=== PATIENT | male | born 1985 | race Caucasian/White ===

== ENCOUNTER → 2020-12-07 09:46 | Outpatient (CLI) | payer OTHER, SELFPAY ==
--- NOTE | ~2020-12-07 | XR_ITS ---
EXAMINATION:XR cervical spine 4-5V DATE: 12/07/2020 10:38 INDICATION: Cervicalgia TECHNIQUE: AP, lateral, lateral swimmers and odontoid views of the cervical spine are provided. COMPARISON: None FINDINGS: Alignment is normal. The odontoid is intact. No fracture is identified. Vertebral body heig hts and disk spaces are normal. Prevertebral soft tissues are normal. Small degenerative osteophytes project from the anterior endplates of multiple vertebral bodies. There is mild multilevel facet and uncovertebral joint osteoarthritis. IMPRESSION: 1. Mild cervical spondylosis without acute findings. Reviewed, dictated and finalized at location A.
== END ==
PROVIDERS: PCP Internal Medicine; Visit Provider Physician Assistant
DX: M47.812 Spondylosis without myelopathy or radiculopathy, cervical region (principal); M54.2 Cervicalgia
CPT/HCPCS: 72050

== ENCOUNTER 2020-12-30 13:30 | Emergency (ER) | payer OTHER, SELFPAY ==
--- NOTE | 2020-12-30 13:39 | ED.ALLEREA ---
HPI - Allergic Reaction General Chief complaint: Allergic Reaction Stated complaint: allergic reaction - pecans Time Seen by Provider: 12/30/20 13:38 Source: patient Mode of arrival: ambulatory Limitations: no limitations History of Present Illness MD complaint: allergic reaction and facial swelling (Mid lip swelling, tingling in mouth, improved since getting medications at [facility]) Onset (ago): hour(s) (1.5) Exposure: food (patient has a known allergy to peanut oil; ate pecans [employer]IN[employer]; also taking lisinopril-HCTZ with no previous reaction to [place]) Symptoms: lip swelling (mid lip) and other (mouth tingling after eating pecans) Severity: moderate Treatment prior to arrival: benadryl, bronchodilator, steroids and other (sent from [facility] for re-evaluation and possible epinephrine) Previous Allergic Reaction History: none (peanut oil) Related Data Home Medications Medication Instructions Recorded Confirmed albuterol sulfate 90 mcg/actuation 2 puff INHALATION Q4-6H PRN gm 02/01/19 12/08/20 aerosol inhaler Allergies Allergy/AdvReac Type Severity Reaction Status Date / Time peanut Allergy Severe Anaphylaxis Verified 12/30/20 13:59 Review of Systems Constitutional: Comments: afebrile, able to answer all questions, NAD Eyes: Comments: no vision changes, no vision loss, ENT: Comments: no difficulty swallowing, does complain of lip swelling, Cardiovascular: Comments: no chest pain, does complain of palpitations, no lower extremity edema Respiratory: Comments: no shortness of breath, no wheezing, no cough Gastrointestinal: Comments: no nausea no vomiting, no abdominal pain Musculoskeletal: Comments: no muscle cramps, no joint swelling Integumentary/Breasts: Comments: no rash, no itching, no wounds Neurologic: Comments: no vertigo, no focal weakness, no headache PMFSH Family History Family History Mother Patient's mother is in good health Social History Social History Smoking status: Never smoker Second hand tobacco smoke exposure: No Alcohol intake: never Exam Const: General: no acute distress and alert Nutritional Appearance: well nourished Course Course Emergency Course: Patient give 0.3mg epinephrine and 1L of fluid on arrival; lip swelling improved; no other symptoms currently; advised patient he could be allergic to pecans or lisinopril and he should talk to his PMD before taking lisinopril again. Patient understands, 100% on RA, ambulating with steady gait. Reevaluation(s) Reevaluation #1: Lip swelling improved, rest of exam normal. Patient feeling better. 100% on RA, no difficulty swallowing; ok for discharge. 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 Lungs CTA B; no urticaria, patient does have upper lip swelling, uvula midline, no soft palate or tongue swelling on exam. Differential Diagnosis Differential diagnosis: Likely anaphylaxis, allergic reaction and angioedema Medical Records Attestation: I reviewed the patient's medical records. Discharge Plan Discharge Clinical Impression: Angioedema, Allergic reaction Patient Disposition: Home, Self-Care Condition: Improved Ins
[2020-12-30 13:40] VITALS: BP 164/109; PULSE 100; RESP 16; TEMP 36.1; O2SAT 93
[2020-12-30] MEDS: EPINEPHrine HCL INJ 1 MG/ML AMPUL 0.3 MG IM (13:46)
[2020-12-30] MEDS: SODIUM CHLORIDE 0.9% IV 1,000 ML 999 ML IV CONT (13:49)
[2020-12-30 14:00] VITALS: BP 163/90; PULSE 98; RESP 16; O2SAT 97
[2020-12-30 15:05] VITALS: BP 144/79; PULSE 106; RESP 16; O2SAT 95
== END 2020-12-30 15:05 | disposition home or self-care (01) ==
PROVIDERS: Emergency Provider Emergency Medicine; PCP Internal Medicine
DX: T78.3XXA Angioneurotic edema, initial encounter (principal); Z91.010 Allergy to peanuts
CPT/HCPCS: 96360; 96372; 99283; J0171; J7030

== ENCOUNTER 2021-01-29 09:09 | Outpatient (CLI) | payer OTHER, SELFPAY ==
--- NOTE | 2021-01-29 11:30 | NEURO_ITS ---
Impression: # Complains of numbness of hands. # Bilateral Carpal Tunnel Syndrome, right more than left. # No ulnar neuropathy. # Normal needle/EMG exam. Nerve Conduction Studies Anti Sensory Summary Table Stim Site NR Peak (ms) P-T Amp (?V) Site1 Site2 Delta-P (ms) Dist (cm) Pawan (m/s) Left Median Anti Sensory (2-3nd Digit) Wrist 4.6 24.6 Wrist 2-3nd Digit 4.6 14.0 30 Wrist 4.1 35.1 Wrist 2-3nd Digit 4.6 14.0 30 Right Median Anti Sensory (2-3nd Digit) Wrist 7.5 9.3 Wrist 2-3nd Digit 7.5 14.0 19 Wrist 5.8 24.8 Wrist 2-3nd Digit 7.5 14.0 19 Left Radial Anti Sensory (Base 1st Digit) Wrist 1.8 20.9 Wrist Base 1st Digit 1.8 0.0 Right Radial Anti Sensory (Base 1st Digit) Wrist 1.8 6.5 Wrist Base 1st Digit 1.8 0.0 Left Ulnar Anti Sensory (5th Digit) Wrist 2.1 78.0 Wrist 5th Digit 2.1 14.0 67 Right Ulnar Anti Sensory (5th Digit) Wrist 2.2 15.6 Wrist 5th Digit 2.2 14.0 64 Motor Summary Table Stim Site NR Onset (ms) O-P Amp (mV) Site1 Site2 Delta-0 (ms) Dist (cm) Pawan (m/s) Left Median Motor (Abd Poll Brev) Wrist 4.6 3.4 Elbow Wrist 4.8 29.0 60 Elbow 9.4 2.9 Right Median Motor (Abd Poll Brev) Wrist 5.2 0.7 Elbow Wrist 4.6 25.0 54 Elbow 9.8 0.7 Left Ulnar Motor (Abd Dig Minimi) Wrist 2.5 7.1 A Elbow Wrist 4.3 29.0 67 A Elbow 6.8 6.2 Right Ulnar Motor (Abd Dig Minimi) Wrist 2.2 6.8 A Elbow Wrist 4.7 29.0 62 A Elbow 6.9 5.1 F Wave Studies NR F-Lat (ms) L-R F-Lat (ms) Left Median (Mrkrs) (Abd Poll Brev) 26.03 0.41 Right Median (Mrkrs) (Abd Poll Brev) 25.62 0.41 Left Ulnar (Mrkrs) (Abd Dig Min) 25.65 1.43 Right Ulnar (Mrkrs) (Abd Dig Min) 24.22 1.43 EMG Side Muscle Nerve Root Ins Act Fibs Amp Dur Recrt Comment Right 1stDorInt Ulnar C8-T1 Nml Nml Nml Nml Nml Right Ext Indicis Radial (Post Int) C7-8 Nml Nml Nml Nml Nml Right Ext Digitorum Radial (Post Int) C7-8 Nml Nml Nml Nml Nml Right BrachioRad Radial C5-6 Nml Nml Nml Nml Nml Right PronatorTeres Median C6-7 Nml Nml Nml Nml Nml Right Abd Poll Brev Median C8-T1 Nml Nml Nml Nml Nml Left 1stDorInt Ulnar C8-T1 Nml Nml Nml Nml Nml Left Ext Indicis Radial (Post Int) C7-8 Nml Nml Nml Nml Nml Left Ext Digitorum Radial (Post Int) C7-8 Nml Nml Nml Nml Nml Left BrachioRad Radial C5-6 Nml Nml Nml Nml Nml Left PronatorTeres Median C6-7 Nml Nml Nml Nml Nml Left Abd Poll Brev Median C8-T1 Nml Nml Nml Nml Nml MTDD
== END 2021-01-29 09:10 | disposition home or self-care (01) ==
LOC: ANHNEURO 09:09
PROVIDERS: PCP Internal Medicine; Visit Provider Physician Assistant
DX: R20.2 Paresthesia of skin (principal); G56.03 Carpal tunnel syndrome, bilateral upper limbs
CPT/HCPCS: 95886; 95911

== ENCOUNTER 2025-02-25 09:22 | Emergency (ER) | payer OTHER, SELFPAY ==
--- NOTE | 2025-02-25 09:23 | ED_ITS ---
HPI - Skin/Abscess/Foreign Bdy General Chief complaint: Skin/Abscess/Foreign Body Stated complaint: Skin Irritation/R Leg Swelling Time Seen by Provider: 02/25/25 09:23 Source: patient Mode of arrival: ambulatory Limitations: no limitations History of Present Illness HPI narrative: patient is a 39-year-old male presents with severe eczema flare with right leg swelling. Patient states symptoms initially started in December and called his scalp specialist. They were able to get him in until March 07. Reports since then his eczema has worsened substantially. Patient has not been seen for symptoms. Concerned that he scratched open his eczema and it is now infected. Denies any fever, chills, nausea, vomiting, diarrhea. Related Data Home Medications ?Medication ?Instructions ?Recorded ?Confirmed ?Last Taken ?Type albuterol sulfate 90 mcg/actuation 2 puff inhalation Q 4-6H 02/01/19 02/25/25 Unknown History aerosol inhaler (Ventolin HFA) multivitamin 1 tablet PO DAILY 07/28/22 1 04/28/24 Unknown History Allergies Allergy/AdvReac Type Severity Reaction Status Date / Time peanut Allergy Severe Anaphylaxis Verified 02/25/25 09:32 Review of Systems 2 Review of Systems: All systems reviewed & are unremarkable except as noted in HPI and below Constitutional: Constitutional: Denies body ache(s), Denies chills, Denies fatigue, Denies fever(s), Denies headache(s), Denies malaise and Denies weakness Eyes: Eyes: Denies blurry vision, Denies irritation and Denies loss of vision ENT: Denies otalgia, Denies headache(s), Denies nasal discharge, Denies sinus pain and Denies sore throat Cardiovascular: Cardiovascular: Denies chest pain, Denies irregular heart rhythm and Denies dyspnea Respiratory: Respiratory: Denies dyspnea Gastrointestinal: Gastrointestinal: Denies abdominal pain, Denies melena, Denies hematochezia, Denies diarrhea, Denies nausea and Denies vomiting Musculoskeletal: Musculoskeletal: Denies back pain, Denies myalgias and Denies arthralgias Integumentary/Breasts: Skin/Breast: Reports pruritus and Reports rash Neurologic: Denies headache(s), Denies loss of vision and Denies weakness Psychiatric: Psychiatric: Reports no additional psychiatric complaints Endocrine: Endocrine: Denies fatigue [facility] Family History Family History Mother Patient's mother is in good health Social History Social History Smoking status: Never smoker Second hand tobacco smoke exposure: No Alcohol intake: never Lack of Transportation: No Lack of Food: Never True Current Housing: I Have Housing Concerned About Future Housing: No Difficulty Paying Gas/Electric Bills: No Difficulty Paying for Meds: No Currently Unemployed: No Education: Bachelor's Degree Difficulty w/ Childcare or Family Care: No Comments At time of signature, agree with nursing past medical, surgical, social and family history. There is no relevant family history pertinent to the presenting complaint. Exam 2 Const: General: cooperative, healthy appearing, comfortable, no acute distress and well nourished Nutritional Appearance: well nourished O rientation/consciousness: patient oriented x3 Limitations: no limitations HENMT: Head: normal to inspection, normocephalic and atraumatic Ears: h earing grossly normal bilaterally and external ears normal Face/Nose/Sinus: N ormal external nose present, normal facial exam and face symmetric Face and sinus: normal facial exam and face symmetric Mouth: Yes lip normal Eyes: General: appearance normal, both eyes and all related structures A lignment and Position: alignment normal and position normal Periorbital: p eriorbital findings normal Eyelids: eyelids normal Pupils: Equal, round and reactive pupils present EOM: EOMs intact bilaterally Neck: Neck: normal visual inspection, full ROM and supple Chest: Chest palpation & inspection: normal inspection of the chest Resp: Effort & Inspection: normal respiratory effort and able to speak in complete sentences Auscultation: clear to auscultation bilaterally Cardio: Rate: regular rate Rhythm: regular rhythm Heart sounds: S1 normal heart sound present and S2 normal heart sound present GI: Inspection: normal to inspection Skin: General skin exam: normal color Rashes: rashes noted patches diffuse full body borders sharp and irregular, color red and surface dry, erythematous and rough Full body images: 1. Large area of erythema with dry cracking and scabbing Neuro: General: patient oriented x3 and moves all extremities Cranial nerves: Yes Equal, round and reactive pupils present Speech: normal speech Gait exam (Neuro): Normal gait present Extrem: General: normal to inspection, full ROM and no edema Psych: Appearance: grossly normal and well kempt Mental Status: mental status grossly normal Speech and movement: Normal speech and movement present Affect: normal affect Attitude: cooperative Thought process: Normal thought process present Course Course Emergency Course: Patient is aware of diagnosis, understands and agrees to treatment plan. Anticipatory guidance given. Patient agrees to follow-up as directed and is aware of reasons to seek care at the emergency department. Portions of this record may have been created with voice recognition software Level of Care: Express Care Visit MDM MDM Narrative Medical decision making narrative: will treat with short course of oral steroids for eczema flare along with antibiotics for secondary cellulitis due to open wounds Pt well hydrated appearing, in no respiratory distress, hemodynamically stable. Recommend supportive care. The patient is stable at time of discharge the clinical impression was discussed and the patient was given the opportunity to ask questions, which were addressed as completely as possible given the information available at present. Anticipatory guidance and return to care precautions were discussed and the importance of primary care follow-up was stressed and encouraged. The patient voiced understanding of the plan, indications to return, and the need for follow-up. Exam findings show no acute concerns or changes Patient is appropriate for outpatient treatment and follow-up. Differential Diagnosis Differential Diagnosis: Differential diagnostic considerations for skin/abscess/foreign body issues include abscess of skin or subcutaneous tissue, viral exanthem, dermatophytosis, urticaria, herpes zoster, allergic reaction to drug, cellulitis, eczema, insect bites, impetigo, contact dermatitis, vasculitis. Medical Records I have reviewed the following patient records and this information was taken into consideration when formulating the assessment and plan.: previous clinic visits Discharge Plan Discharge Clinical Impression: Eczema Cellulitis Qualifiers: Site of cellulitis: extremity Site of cellulitis of extremity: lower extremity Laterality: right Qualified Code(s): L03.115 - Cellulitis of right lower limb Patient Disposition: Home Condition: Stable Instructions: Cellulitis (ED) Additional Instructions: Take steroids in the morning with food Please follow up with your Primary Care Doctor within 48-72 hours - call for an appointment. Rest and elevate affected area; apply moist heat 3-4 times daily for 10-15 minutes. Clean with soap and water only; Avoid using alcohol and peroxide. Elevate the affected area if possible Please take Antibiotics as directed. For pain, you may take: Tylenol 650-1000mg by mouth every 4-6 hours. Do not exceed 4000mg in 24 hours. Advil (Ibuprofen) 600 mg by mouth every 6 hours. Do not exceed 2400mg in 24 hours. 8 AM: Tylenol 11 AM: Ibuprofen 2 PM: Tylenol 5 PM: Ibuprofen 8 PM: Tylenol 11 PM: Ibuprofen 2 AM: Tylenol 5 AM: Ibuprofen If you experience any worsening redness, swelling, streaking (red lines), fever or chills please go to the ER Patient Language: Maori Prescriptions: New prednisone 20 mg tablet See Rx Instructions .ROUTE .COMPLEX Qty: 9 0RF Rx Instructions: 40 mg daily x3 days, 20 mg daily x3 days cephalexin 500 mg capsule 500 mg PO Q12H 7 Days Qty: 14 0RF No Action ibuprofen 800 mg tablet 800 mg PO BID PRN (Reason: pain) Qty: 60 1RF multivitamin Tablet 1 tablet PO DAILY albuterol sulfate [Ventolin HFA] 90 mcg/actuation HFA aerosol inhaler 2 puff INHALATION Q4-6H lisinopril-hydrochlorothiazide 20-12.5 mg tablet 1 tablet PO DAILY Qty: 90 2RF Follow-up/Referrals: Han Jacobo MD [Physician, Family Practice] - 3 Days Time of Disposition: 10:12
[2025-02-25 09:34] VITALS: BP 130/88; PULSE 97; RESP 16; TEMP 36.6; O2SAT 99
== END 2025-02-25 10:13 | disposition home or self-care (01) ==
PROVIDERS: Emergency Provider Nurse Practitioner Family
DX: L30.9 Dermatitis, unspecified (principal); L03.115 Cellulitis of right lower limb; I10 Essential (primary) hypertension; J45.909 Unspecified asthma, uncomplicated
CPT/HCPCS: 99211; 99213; G0463